=== PATIENT | female | born 1955 | race Caucasian/White ===

== ENCOUNTER 2024-06-01 07:42 | Inpatient (IN) | payer BC ==
[~2024-06-01] VITALS: Ht 165.1 cm; Wt 71.0 kg
[2024-06-01 07:57] VITALS: BP 109/44
[2024-06-01] MEDS ORDERED: MORP30 PO (08:46)
[2024-06-01] MEDS ORDERED: LEVSOD100 PO (08:47)
[2024-06-01] MEDS ORDERED: Morphine Sulfate IR 15 MG Tab PO PRN (09:45)
[2024-06-01] MEDS ORDERED: Lactated Ringer's 1,000 ML IV SCH (09:50)
[2024-06-01] MEDS ORDERED: Levothyroxine Sodium 0.1 MG Tab PO SCH (10:00)
[2024-06-01 10:12] LABS: BASOPHILS ABSOLUTE AUTO 0.03 K/mm3 (0.00-0.23); BASOPHILS PERCENT AUTO 0 % (0-2); EOSINOPHILS ABSOLUTE AUTO 0.02 K/mm3 (0.00-0.68); EOSINOPHILS PERCENT AUTO 0 % (0-6); Hemoglobin 10.1 g/dL (11.5-16.0); IMMATURE GRAN ABSOLUTE AUTO 0.03 K/mm3 (0.00-0.10); IMMATURE GRAN PERCENT AUTO 0 % (0-1); LYMPHOCYTES ABSOLUTE AUTO 1.15 K/mm3 (0.84-5.20); LYMPHOCYTES PERCENT AUTO 16 % (21-46); MONOCYTES ABSOLUTE AUTO 0.35 K/mm3 (0.16-1.47); MONOCYTES PERCENT AUTO 5 % (4-13); Mean Corpuscular HGB 25.3 pg (26.0-34.0); Mean Corpuscular HGB Conc 31.6 g/dL (31.5-36.5); Mean Corpuscular Volume 80 fL (80-100); Mean Platelet Volume 9.3 fL (9.1-12.4); NEUTROPHILS ABSOLUTE AUTO 5.85 K/mm3 (1.96-9.15); NEUTROPHILS PERCENT AUTO 79 % (41-73); Platelet Count 348 K/mm3 (150-400); RDW Coefficient Variation 13.9 % (11.7-14.2); RDW Standard Deviation 40.7 fL (35.1-46.3); White Blood Cell Count 7.43 K/mm3 (4.00-11.30)
[2024-06-01 10:48] LABS: Albumin/Globulin Ratio 0.4 (0.8-1.8); Bilirubin, Total 0.7 mg/dL (0.1-1.0); Bun/Creatinine Ratio 19.4 (12.0-20.0); Calcium, Blood 8.2 mg/dL (8.5-10.1); Creatinine, Blood 0.47 mg/dL (0.40-1.00); Globulin, Blood 4.5 g/dL (2.2-4.0); Potassium, Blood 3.1 mmol/L (3.5-5.5); Thyroid Stimulating Hormone 1.03 uIU/mL (0.360-4.800); Total Protein, Blood 6.5 g/dL (6.4-8.2)
[2024-06-01] MEDS ORDERED: Vancomycin HCL 1,750 MG in NS 500 ML IV ONE (10:55)
[2024-06-01] MEDS ORDERED: Piperacillin/Tazobactam Sod 4.5 GM in NS 100 ML IV SCH (11:00)
[2024-06-01] MEDS ORDERED: Amoxicillin/Clavulanate K 875 MG Tab PO SCH (13:00)
[2024-06-01] MEDS ORDERED: Potassium Chloride 20 MEQ TabCR PO ONE (14:00)
[2024-06-01] MEDS ORDERED: Ondansetron 4 MG SoluTab SL PRN (15:10)
[2024-06-01 15:20] VITALS: BP 111/80
[2024-06-01 19:43] VITALS: BP 102/52
--- NOTE | 2024-06-01 19:48 | NUR ---
Pt direct admit to floor at 0800, VSS, denies SOB, states 6 out of 10 pain that was well managed with prn oral morphine, ambulates with SB assist to bathroom, on RA. Lungs diminished, heart regular, bowel sounds normative, pt has poor appeite and difficulty swollowing, Speech consulted, pt on mincied and moist diet tolerating well. Pt can make needs known, call milton in hand, bed in lowest position.
[2024-06-01] MEDS ORDERED: Lactobacil 2-S.Thermo-Bifido 1 1 Cap PO SCH (21:00)
[2024-06-02] MEDS ORDERED: Vancomycin HCL 1,250 MG in NS 250 ML IV SCH
--- NOTE | 2024-06-02 04:10 | NUR ---
STRU[employer]URAL [employer] SUMMARY VSS. ALERT AND ORIENTED, AT BEDSIDE TO ASSIST WITH PT CARE. IV ANTIBIOICS INFUSING. UP WITH WALKER AND ONE PERSON ASSIST TO BATHROO. TOLERATING PO ABX WITHOUT NOTED ADVERSE REACTIONS. HOB ELEVATED WHEN IN BED FOR BETTER BREATHING. NOTE LUNG SOUNDS DIMINISHED IN LOWER LOBES PER AUSCULTATION. MRSA SWAB DONE - ON CONTACT ISOLATION UNTIL MRSA RULED OUT. TOLERATES PO MEDS WITH APPLESAUCE WELL. HAS BEEN RESTING QUIETLY WITH FEW INTERRUPTIONS OTHERWISE. ABLE TO REPOSITION SELF IN BED WITH LITTLE ASSIST - HELPS. CALL LIGHT IN REACH, RAILS UP X 2 AND BED IN LOW POSITION FOR SAFETY. WILL CONTINUE TO MONITOR
[2024-06-02 05:15] VITALS: BP 109/51
[2024-06-02 05:27] LABS: BASOPHILS ABSOLUTE AUTO 0.03 K/mm3 (0.00-0.23); BASOPHILS PERCENT AUTO 0 % (0-2); EOSINOPHILS ABSOLUTE AUTO 0.03 K/mm3 (0.00-0.68); EOSINOPHILS PERCENT AUTO 0 % (0-6); Hematocrit 31.8 % (33.0-51.0); Hemoglobin 10.1 g/dL (11.5-16.0); IMMATURE GRAN ABSOLUTE AUTO 0.03 K/mm3 (0.00-0.10); IMMATURE GRAN PERCENT AUTO 0 % (0-1); LYMPHOCYTES ABSOLUTE AUTO 1.28 K/mm3 (0.84-5.20); LYMPHOCYTES PERCENT AUTO 17 % (21-46); MONOCYTES ABSOLUTE AUTO 0.45 K/mm3 (0.16-1.47); MONOCYTES PERCENT AUTO 6 % (4-13); Mean Corpuscular HGB 25.1 pg (26.0-34.0); Mean Corpuscular HGB Conc 31.8 g/dL (31.5-36.5); Mean Corpuscular Volume 79 fL (80-100); Mean Platelet Volume 8.6 fL (9.1-12.4); NEUTROPHILS ABSOLUTE AUTO 5.96 K/mm3 (1.96-9.15); NEUTROPHILS PERCENT AUTO 77 % (41-73); Platelet Count 414 K/mm3 (150-400); RDW Standard Deviation 39.7 fL (35.1-46.3); Red Blood Cell Count 4.02 M/mm3 (3.80-5.20); White Blood Cell Count 7.78 K/mm3 (4.00-11.30)
[2024-06-02 05:57] LABS: Bun/Creatinine Ratio 9.6 (12.0-20.0); Calcium, Blood 8.6 mg/dL (8.5-10.1); Creatinine, Blood 0.52 mg/dL (0.40-1.00); Potassium, Blood 3.5 mmol/L (3.5-5.5)
[2024-06-02 07:57] VITALS: BP 101/46
[2024-06-02 13:52] LABS: Acinetobacter baumannii DNA Not Detected copy/mL (NOT DETECT); Adenovirus DNA Not Detected (NOT DETECT); Chlamydia pneumonia Not Detected (NOT DETECT); Enterobacter cloacae DNA Not Detected copy/mL (NOT DETECT); Escherichia coli DNA Not Detected copy/mL (NOT DETECT); Haemophilus influenzae DNA Not Detected copy/mL (NOT DETECT); Human Coronavirus RNA Not Detected (NOT DETECT); Human Metapneumovirus RNA Not Detected (NOT DETECT); Influenza virus A RNA Not Detected (NOT DETECT); Influenza virus B RNA Not Detected (NOT DETECT); Klebsiella aerogenes DNA Not Detected copy/mL (NOT DETECT); Klebsiella oxytoca DNA Not Detected copy/mL (NOT DETECT); Klebsiella pneumoniae DNA Not Detected copy/mL (NOT DETECT); Legionella pneumophila Not Detected (NOT DETECT); Moraxella catarrhalis DNA Not Detected copy/mL (NOT DETECT); Mycoplasma pneumoniae Not Detected (NOT DETECT); Parainfluenza virus RNA Not Detected (NOT DETECT); Proteus sp DNA Not Detected copy/mL (NOT DETECT); Pseudomonas aeruginosa DNA Not Detected copy/mL (NOT DETECT); Respiratory syncytial Vir RNA Not Detected (NOT DETECT); Rhinovirus+Enterovirus RNA Not Detected (NOT DETECT); Serratia marcescens DNA Not Detected copy/mL (NOT DETECT); Staphylococcus aureus DNA Not Detected copy/mL (NOT DETECT); Streptococcus agalactiae DNA Not Detected copy/mL (NOT DETECT); Streptococcus pneumoniae DNA Not Detected copy/mL (NOT DETECT); Streptococcus pyogenes DNA Not Detected copy/mL (NOT DETECT)
[2024-06-02] MEDS ORDERED: AMOX-CLAV 875-1 EAC5 PO (14:02)
[2024-06-02] MEDS ORDERED: ONDA4ODT MM (14:03)
[2024-06-02] MEDS ORDERED: VISBIOME 112.51 EACH PO (14:03)
--- NOTE | 2024-06-02 17:36 | NUR ---
VSS, denies SOB, denies any pain, A-Ox4, ambulates with with SB assist to bathroom, on RA. Lungs clear, heart regular, bowel sounds normative. Pt D/C at 1635, D/C insturctions given, safety ensured.
--- NOTE | 2024-06-03 09:41 | NUR ---
discharge perscriptions pT CALLED THIS MORNING RELATING THAT Ericka Mccain IN [place] HAD NOT RECEIVED PT DISCHARGE MEDICATIONS. RECALLED PERSCRIPTIONS TO ERICKA SAWANT AND CALLED IN ZOFRAN AND VISBIOME. RECALLED PT AND LET HER KNOW THAT THE MEDICATIONS HAD BEEN RECALLED. CARE ONGOING.
== END 2024-06-02 16:41 | disposition home or self-care (01) | DRG 179 ==
LOC: MEDS 07:42 → ENPENDDIS 06-02 13:45 → MEDS 06-02 16:41
PROVIDERS: Family Medicine; Internal Medicine Critical Care Medicine; ADMIT Internal Medicine
DX: J85.1 Abscess of lung with pneumonia (principal); T17.998A Other foreign object in respiratory tract, part unspecified causing other injury, initial encounter; E03.9 Hypothyroidism, unspecified; R13.12 Dysphagia, oropharyngeal phase; Z98.1 Arthrodesis status; Z87.891 Personal history of nicotine dependence; Z88.0 Allergy status to penicillin; Z88.8 Allergy status to other drugs, medicaments and biological substances; Z79.890 Hormone replacement therapy; Z79.899 Other long term (current) drug therapy
CPT/HCPCS: 36415; 74230; 80048; 80053; 83605; 83880; 84443; 85025; 87633; 92610; 92611; A9270; J3370; J7040; J7050; J7120